=== PATIENT | female | born 2000 | race African-American/Black ===

== ENCOUNTER 2023-07-24 20:28 | Inpatient (IN) ==
--- NOTE | 2023-07-24 20:55 | Emergency Department Note ---
Impression & Plan Suicide attempt by drug ingestion, Overdose on Tylenol, Acute hypokalemia ED Provider Note HISTORY OF PRESENT ILLNESS: Patient is a 23-year-old female presenting after a suicide attempt via overdosing on Tylenol and caffeine. Patient reports that at 1700 today she took 8-12 extra strength Tylenol and drank 5 Celsius energy drinks. Reports she was trying to kill her self secondary to social stressors and stressors with class at the [employer]. She denies any homicidal ideation. Reports she is attempted suicide before in the past via an overdose. Denies any previous inpatient psychiatric admissions. Does not take any medications daily. Patient denies any nausea or vomiting at this time. Other than taking the caffeine, patient denies any other coingestions. ROS: as above PHYSICAL EXAM: Constitutional: Patient appears in no acute distress. HENT: Head: Normocephalic and atraumatic. Eyes: EOMI, PERRL Mouth/Throat: Mucous membranes moist. Neck: Trachea midline. Neck supple. Cardiovascular: Tachycardic with regular rhythm. No murmurs, rubs or gallops. Intact distal pulses. Pulmonary/Chest: No respiratory distress. Breath sounds clear and equal bilaterally. No wheezes or rales. Abdominal: Abdomen soft, no tenderness, rebound or guarding. Musculoskeletal: No edema, tenderness or deformity noted. Skin: Warm and dry. No rash, erythema, pallor or cyanosis Psychiatric: Appropriate mood and affect for situation. Neurological: Alert and keenly responsive. CN II-XII grossly intact, moving all extremities equally and fully. MDM: - Vitals signs showed hypertension and tachycardia. - History obtained via patient. Patient presents with suicide attempt via overdose. Patient reports she took 12 extra strength Tylenol at 1700 today and drank 5 Celsius energy drinks. Reports she was trying to kill her self secondary to social stressors. Denies any homicidal ideation. Reports previous suicide attempts via overdose in the past. She is not currently on any medications. Denies any nausea or vomiting at this time. - Chronic conditions affecting care: None - Differential diagnoses include, but are not limited to: Acetaminophen overdose; coingestion overdose; alcohol overdose; dysrhythmia; electrolyte abnormality - Order placed for continuous cardiac monitoring. At this time, monitor showed rate of 91 bpm with normal sinus rhythm, per my interpretation. - External medical records reviewed. In the past. - I called and spoke with [facility] at 20:56. They recommended drawing a Tylenol level at this time, as patient is about 4 hours postingestion. Recommended that if patient's acetaminophen level is less than 150 and her LFTs are normal, she does not need NAC. If patient did ingest 12 tabs, it was a total of 6 g of Tylenol which would not be a toxic dose. - EKG reviewed by myself showed normal sinus rhythm. Rate 92 bpm. QTc 440. No acute ischemic changes. Very poor baseline secondary to artifact. - Laboratory workup interpreted by myself showed normal WBC; hypokalemia (K 3.3); normal hepatic function; negative ethanol/salicylate levels; elevated acetaminophen (39) - COVID negative - Based on poison control recommendations, patient does not require NAC. - UA negative for infection - UDS negative - Patient given 2L NS in ER for hydration. Given 20 mEq PO potassium for electrolyte replacement. - Patient medically cleared. - Patient signed a 201 for voluntary admission for her suicide attempt. She was evaluated by a customer relations representative from inpatient psychiatric unit on 3 S. She was accepted for admission. ASSESSMENT AND PLAN: Diagnosis: Suicide attempt via drug ingestion; Tylenol overdose; hypokalemia Plan: Admit Past Med/Surg History Social History Smoking Status: Never smoker Preferred Language: Romanian Feels Safe at Home: Yes Gender Identity: Female Allergies Allergies Allergy/AdvReac Type Severity Reaction Status Date / Time Penicillins Allergy Intermediate Hives Verified 07/24/23 22:08 Home Meds Home Medications Medication Instructions Recorded Confirmed No Known Home Medications 07/24/23 07/24/23 Results & Data (ED) Vital Signs Vital Signs - 24 hr 07/24/23 20:35 07/24/23 21:06 07/24/23 21:06 Temperature 36.6 C Temperature Source Temporal Artery Scan Pulse Rate 113 H Pulse Rate [Apical] 104 H Respiratory Rate 20 20 Respiratory Effort / Characteristics Non-Labored Spontaneous Respiratory Depth Normal Blood Pressure 164/88 H Blood Pressure [Left Arm] Blood Pressure Mean 113 Blood Pressure Mean [Left Arm] Pulse Oximetry 97 100 Oxygen Delivery Method Room Air Room Air Room Air Sepsis New/Unexplained Change in Mental Status N/A Sepsis Action Taken by Nursing No Action Required 07/24/23 21:06 07/24/23 21:14 07/24/23 22:10 Temperature Temperature Source Pulse Rate 107 H Pulse Rate [Apical] 93 H Respiratory Rate 16 Respiratory Effort / Characteristics Respiratory Depth Blood Pressure Blood Pressure [Left Arm] 107/68 Blood Pressure Mean Blood Pressure Mean [Left Arm] 81 Pulse Oximetry 98 Oxygen Delivery Method Room Air Sepsis New/Unexplained Change in Mental Status Sepsis Action Taken by Nursing Laboratory Data 07/24/23 20:53 07/24/23 20:53 Lab Results 07/24/23 07/24/23 07/24/23 Range/Units 20:53 21:19 23:03 WBC 6.55 (4.8-10.8) K/ul RBC 4.72 (4.20-5.40) M/uL Hgb 14.7 (12.0-16.0) g/dl Hct 41.8 (37.0-47.0) % MCV 88.6 (80.0-100.0) fL MCH 31.1 (25.0-34.0) pg MCHC 35.2 (32.0-36.0) g/dL RDW Std Deviation 37.1 (36.4-46.3) fL RDW Coeff of Curt 11.5 (11.5-14.5) % Plt Count 245 (130-400) K/uL MPV 10.6 (9.4-12.4) fL Immature Gran % (Auto) 0.3 % Neut % (Auto) 63.6 % Lymph % (Auto) 27.8 % [place] % (Auto) 5.3 % Eos % (Auto) 2.7 % Baso % (Auto) 0.3 % Neut # (Auto) 4.16 (1.40-6.50) K/uL Lymph # (Auto) 1.82 (1.20-3.40) K/uL [place] # (Auto) 0.35 (0.11-0.59) K/uL Eos # (Auto) 0.18 (0.00-0.50) K/uL Baso # (Auto) 0.02 (0.00-0.20) K/uL Immature Gran # (Auto) 0.02 (0.01-0.20) K/uL PT 11.2 (9.0-12.0) Seconds INR 1.0 (0.9-1.1) VBG pH 7.41 (7.36-7.41) VBG pCO2 32 L (38-50) mmHg VBG pO2 31 mmHg VBG HCO3 20 mmol/L VBG O2 Saturation < 60.0 % VBG Base Excess -3.4 mEq/L Sodium 136 (136-145) mmol/L Potassium 3.3 L (3.5-5.1) mmol/L Chloride 103 (98-107) mmol/L Carbon Dioxide 20 L (21-32) mmol/L Anion Gap 13 H (3-11) BUN 10 (6-23) mg/dl Creatinine 0.86 (0.6-1.2) mg/dl Est Cr Clr Drug Dosing 87.9 ml/min Est GFR ( Amer) 110.4 ml/min Est GFR (Non-Af Amer) 95.2 ml/min BUN/Creatinine Ratio 11.6 (10-20) Glucose 107 H (70-99(Fasting)) mg/dl Calcium 10.4 H (8.6-10.3) mg/dl Magnesium 1.7 (1.7-2.4) mg/dl Total Bilirubin 1.3 H (0.2-1.0) mg/dl AST 17 (13-39) U/L ALT 10 (7-52) U/L Alkaline Phosphatase 57 (34-104) U/L Total Protein 8.3 (6.0-8.3) gm/dl Albumin 4.6 (3.4-5.0) gm/dl Globulin 3.7 (2.5-4.0) gm/dl Albumin/Globulin Ratio 1.2 (0.9-2) HCG, Qual Negative (Negative) Urine Color Yellow Urine Appearance Clear (Clear) Urine pH 7.0 (4.5-7.5) Ur Specific [place] 1.011 (1.000-1.030) Urine Protein Negative (Negative) Urine Glucose (UA) Trace H (Negative) Urine Ketones Trace H (Negative) Urine Blood Negative (Negative) Urine Nitrite Negative (Negative) Urine Bilirubin Negative (Negative) Urine Urobilinogen Negative (Negative) Ur Leukocyte Esterase Negative (Negative) Urine Test Negative (Negative) Salicylates < 3.0 L (3.0-30) mg/dl Urine Opiates Screen Neg (Neg) Ur Methadone, Qual Neg (Neg) Acetaminophen 39 H (10-30) ug/ml Urine Barbiturates Neg (Neg) Ur Phencyclidine (PCP) Neg (Neg) U Amphetamin/Meth Scrn Neg (Neg) MDMA (Ecstasy) Screen Neg (Neg) U Benzodiazepines Scrn Neg (Neg) Ur Cocaine Metabolite Neg (Neg) U Marijuana (THC) Screen Neg (Neg) Ethyl Alcohol mg/dL < 10.0 (<10.0) mg/dl SARS-CoV-2, RNA, NAAT (NEGATIVE) 07/24/23 Range/Units Unknown WBC (4.8-10.8) K/ul RBC (4.20-5.40) M/uL Hgb (12.0-16.0) g/dl Hct (37.0-47.0) % MCV (80.0-100.0) fL MCH (25.0-34.0) pg MCHC (32.0-36.0) g/dL RDW Std Deviation (36.4-46.3) fL RDW Coeff of Curt (11.5-14.5) % Plt Count (130-400) K/uL MPV (9.4-12.4) fL Immature Gran % (Auto) % Neut % (Auto) % Lymph % (Auto) % [place] % (Auto) % Eos % (Auto) % Baso % (Auto) % Neut # (Auto) (1.40-6.50) K/uL Lymph # (Auto) (1.20-3.40) K/uL [place] # (Auto) (0.11-0.59) K/uL Eos # (Auto) (0.00-0.50) K/uL Baso # (Auto) (0.00-0.20) K/uL Immature Gran # (Auto) (0.01-0.20) K/uL PT (9.0-12.0) Seconds INR (0.9-1.1) VBG pH (7.36-7.41) VBG pCO2 (38-50) mmHg VBG pO2 mmHg VBG HCO3 mmol/L VBG O2 Saturation % VBG Base Excess mEq/L Sodium (136-145) mmol/L Potassium (3.5-5.1) mmol/L Chloride (98-107) mmol/L Carbon Dioxide (21-32) mmol/L Anion Gap (3-11) BUN (6-23) mg/dl Creatinine (0.6-1.2) mg/dl Est Cr Clr Drug Dosing ml/min Est GFR ( Amer) ml/min Est GFR (Non-Af Amer) ml/min BUN/Creatinine Ratio (10-20) Glucose (70-99(Fasting)) mg/dl Calcium (8.6-10.3) mg/dl Magnesium (1.7-2.4) mg/dl Total Bilirubin (0.2-1.0) mg/dl AST (13-39) U/L ALT (7-52) U/L Alkaline Phosphatase (34-104) U/L Total Protein (6.0-8.3) gm/dl Albumin (3.4-5.0) gm/dl Globulin (2.5-4.0) gm/dl Albumin/Globulin Ratio (0.9-2) HCG, Qual (Negative) Urine Color Urine Appearance (Clear) Urine pH (4.5-7.5) Ur Specific [place] (1.000-1.030) Urine Protein (Negative) Urine Glucose (UA) (Negative) Urine Ketones (Negative) Urine Blood (Negative) Urine Nitrite (Negative) Urine Bilirubin (Negative) Urine Urobilinogen (Negative) Ur Leukocyte Esterase (Negative) Urine Test (Negative) Salicylates (3.0-30) mg/dl Urine Opiates Screen (Neg) Ur Methadone, Qual (Neg) Acetaminophen (10-30) ug/ml Urine Barbiturates (Neg) Ur Phencyclidine (PCP) (Neg) U Amphetamin/Meth Scrn (Neg) MDMA (Ecstasy) Screen (Neg) U Benzodiazepines Scrn (Neg) Ur Cocaine Metabolite (Neg) U Marijuana (THC) Screen (Neg) Ethyl Alcohol mg/dL (<10.0) mg/dl SARS-CoV-2, RNA, NAAT NEGATIVE (NEGATIVE) Administered Medications Discontinued Medications Sodium Chloride (Nss) 1,000 mls @ 999 mls/hr IV .Q1H1M JOSE Stop: 07/24/23 22:00 Last Infusion: 07/24/23 22:24 Dose: Infused Documented By: Admin: 07/24/23 21:26 Dose: 999 mls/hr Documented By: PAVEL Sodium Chloride (Nss) 1,000 mls @ 999 mls/hr IV .Q1H1M ONE Stop: 07/25/23 00:31 Last Admin: 07/25/23 00:14 Dose: 999 mls/hr Documented By: PAVEL Potassium Chloride (Potassium Chloride Crtab 20 Meq Tabcr) 20 meq PO NOW STA Stop: 07/24/23 23:38 Last Admin: 07/25/23 00:15 Dose: Not Given Documented By: PAVEL Potassium Chloride (Potassium Chloride 10 Meq Tabcr) Confirm Administered Dose 20 meq PO .STK-MED ONE Stop: 07/25/23 00:02 Last Admin: 07/25/23 00:14 Dose: 20 meq Documented By: PAVEL Discharge Plan Visit Data Chief Complaint: Overdose (Intentional) Stated Complaint: DRANK A LOT OF CAFFINE AND TOOK A LOT OF TYLENOL ED Provider: Lilliana Young Discharge Problem: Suicide attempt by drug ingestion, Overdose on Tylenol, Acute hypokalemia Forms Stand Alone Forms: [facility], Suicide Prevention Resources Prescriptions Prescriptions: No Action No Known Home Medications Referrals Referrals: PCP,NO [Physician] -
[2023-07-24] MEDS ORDERED: SODIUM CHLORIDE 0.9% 1,000 ML IV SCH (21:00)
[2023-07-24 21:26] LABS: Base Excess VBG -3.4 mEq/L; HCO3 VBG 20 mmol/L; Oxygen Saturation VBG < 60.0 %; PCO2 VBG 32 mmHg (38-50); PO2 VBG 31 mmHg; pH VBG 7.41 (7.36-7.41)
[2023-07-24 21:28] LABS: Pregnancy Test, Serum Negative (Negative)
[2023-07-24 21:34] LABS: Albumin Globulin Ratio 1.2 (0.9-2); Albumin Level 4.6 gm/dl (3.4-5.0); BUN Creatinine Ratio 11.6 (10-20); Bilirubin,Total 1.3 mg/dl (0.2-1.0); Calcium 10.4 mg/dl (8.6-10.3); Creatinine Clr Calc Pharmacy 87.9 ml/min; Est GFR (African American) 110.4 ml/min; Est GFR (Non-African American) 95.2 ml/min; Globulin 3.7 gm/dl (2.5-4.0); Magnesium 1.7 mg/dl (1.7-2.4); Potassium 3.3 mmol/L (3.5-5.1); Total Protein 8.3 gm/dl (6.0-8.3)
[2023-07-24 21:35] LABS: Basophils # (auto) 0.02 K/uL (0.00-0.20); Basophils % (auto) 0.3 %; Eosinophils # (auto) 0.18 K/uL (0.00-0.50); Eosinophils % (auto) 2.7 %; Hematocrit (blood only) 41.8 % (37.0-47.0); Hemoglobin 14.7 g/dl (12.0-16.0); Immature Granulocytes # (auto) 0.02 K/uL (0.01-0.20); Immature Granulocytes % (auto) 0.3 %; Lymphocytes # (auto) 1.82 K/uL (1.20-3.40); Lymphocytes % (auto) 27.8 %; Mean Corpuscular Hemoglobin 31.1 pg (25.0-34.0); Mean Corpuscular Hgb Conc 35.2 g/dL (32.0-36.0); Mean Corpuscular Volume 88.6 fL (80.0-100.0); Mean Platelet Volume 10.6 fL (9.4-12.4); Monocytes # (auto) 0.35 K/uL (0.11-0.59); Monocytes % (auto) 5.3 %; Neutrophils # (auto) 4.16 K/uL (1.40-6.50); Neutrophils % (auto) 63.6 %; Platelet Count 245 K/uL (130-400); RDW Coefficient of Variation 11.5 % (11.5-14.5); RDW Standard Deviation 37.1 fL (36.4-46.3); Red Blood Count 4.72 M/uL (4.20-5.40); White Blood Count 6.55 K/ul (4.8-10.8)
[2023-07-24 21:48] LABS: Prothrombin Time 11.2 Seconds (9.0-12.0)
[2023-07-24 21:49] LABS: Acetaminophen 39 ug/ml (10-30); Salicylate < 3.0 mg/dl (3.0-30)
[2023-07-24 23:24] LABS: Appearance Urine Clear (Clear); Bilirubin Urine Negative (Negative); Blood Urine Negative (Negative); Color Urine Yellow; Glucose Urine UA Trace (Negative); Ketones Urine Trace (Negative); Leukocyte Esterase Urine Negative (Negative); Nitrite Urine Negative (Negative); Protein Urine Negative (Negative); Specific Gravity Urine 1.011 (1.000-1.030); Urobilinogen Urine Negative (Negative)
[2023-07-24 23:29] LABS: Pregnancy Test, Urine Negative (Negative)
[2023-07-24] MEDS ORDERED: SODIUM CHLORIDE 0.9% 1,000 ML IV ONE (23:31)
[2023-07-24] MEDS ORDERED: POTASSIUM CHLORIDE CRTAB 20 MEQ TABCR PO STA (23:37)
[2023-07-25] MEDS ORDERED: POTASSIUM CHLORIDE 10 MEQ TABCR PO ONE (00:01)
[2023-07-25 00:07] LABS: Amphetamines+Metham, Urine Neg (Neg); Barbiturates, Urine Neg (Neg); Benzodiazepine, Urine Neg (Neg); Cocaine, Urine Neg (Neg); MDMA (Ecstacy), Urine Neg (Neg); Methadone, Urine Neg (Neg); Opiate, Urine Neg (Neg); Phencyclidine, Urine Neg (Neg)
[2023-07-25] MEDS ORDERED: SODIUM CHLORIDE 0.65% NA SOLN 45 ML (OCEAN) PRN (02:30)
[2023-07-25] MEDS ORDERED: BISMUTH SUBSALICYLATE LIQD 236 ML PO PRN (02:30)
[2023-07-25] MEDS ORDERED: MAGNESIUM HYDROXIDE SUSP 30 ML UDC PO PRN (02:30)
[2023-07-25] MEDS ORDERED: ALUMINUM/MAGNESIUM SUSP 30 ML UDC PO PRN (02:30)
[2023-07-25] MEDS ORDERED: hydrOXYzine HCl 25 MG TAB PO PRN ×2 (02:30)
--- NOTE | 2023-07-25 08:31 | History & Physical ---
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 Diagnostically consistent with unspecified depressive disorder with differential including MDD vs reactive depression/ adjustment disorder with depressed mood. Discussed medication treatment options in detail including SSRI and Wellbutrin vs no medication and working on therapy. Discussed risks, benefits and alternatives. Patient would like to start and consented to Wellbutrin for depression. Reviewed side effects including but not limited to: increased BP, increased HR, insomnia, decreased appetite, lowered seizure threshold, and counseled on black box warning of potential for emergence of or increased SI and need to let staff know should this occur or should they feel unsafe. Also discussed importance of seeking emergency care following discharge if this side effect occurs in the future. Overall I spent a total of 80 minutes for this admission including review of chart records, review of labwork, direct evaluation of the patient, counseling the patient, ordering medication, risk assessment, discussion with the psychiat maurisio liason RN and treatment team, documentation in the electronic health record. (1) Suicide attempt by drug ingestion: (2) Overdose on Tylenol: Injury intent: intentional self-harm (3) Depression, unspecified: Depression Type: unspecified Qualified Code(s): F32.A - Depression, unspecified Plan 07/25/2023: The patient was admitted to the [facility] ([facility] mental health unit) on q15 min checks (behavioral with suicide precautions) for safety. The patient will participate in group, recreational, and milieu therapies and will be offered additional individual and family sessions as clinically appropriate. -Wellbutrin XL 150mg qAM tomorrow Inventory Assets Strengths: supportive relationships, willing to get treatment Needs: safety and stabilization, medication adjustment, additional coping skills, increased outpatient services Suicide Risk Level Suicide Risk Level: High-Moderate (q15 min suicide checks) (suicide attempt prior to admission but feels safe in the hospital, and feels able and comfortable letting nursing/staff know should they develop plan, intent or feel unable to remain safe. 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 Chief Complaint "Things came on suddenly". History of Present Illness She presents for psychiatric admission for worsening depression and suicide attempt via overdose of acetaminophen and energy drinks in the context of failing her nursing clinical which means she cannot graduate as planned and unhappiness overall in her major and as student at [employer]. She talked to her mom yesterday to tell her that she failed the clinical and "that I'm going to need to decide what I'm going to do that's not nursing". Her parents don't currently know she is the hospital but she plans to tell her mom today. She notes that yesterday she first tried putting a plastic bag over her head and when then that didn't work she researched and found "caffeine at a certain amount could cause seizures and that Tylenol can be really bad for your liver and didn't know what other drugs were available". 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 She notes feeling good about being alive and is "nervous about what I'm going to study but also it will be nice to pick what I study" but also "not sure what this means for graduation". She describes feeling depressed in the last 4-5 weeks before failing her clinical exam including crying alot, some hopelessness and helplessness, low motivation, difficulty getting out of bed and sleep has been stable. Additional collateral per psych liason note from 07/25/2023: "23y F, 201, no hx inpt tx, 1 previous suicide attempt in 2020 by cutting, reports being depressed since coming to [employer]. 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 Received failing grades yesterday, impulsively went to the store, bought Tylenol and energy drinks to consume with the intent of suicide. Spoke with her mom on the phone, didn't disclose taking the OD, but felt better after talking with mom, so she drove herself to the ER. Willing to sign in voluntarily for tx, not on any medications, had a therapist in [place] but no longer sees her. Pt seemed guarded in her answers, and was not willing to sign BLADIMIR for parents. Denies anxiety, denies thoughts of SI until yesterday." Further collateral per ED CM note from 07/24/2023: "Pt presents after taking 8- 12 Tylenol and 5 Celsius energy drinks in an attempt to end her life. She denies HI/AH/VH/Paranoia. Denies current self-injury. Pt prefers she/her pronouns. Denies problems with anxiety. Pt does have a therapist but does not recall her name at this time. 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 Carlos reports getting approximately 6 hours of sleep nightly and has had a reduced appetite without any noticeable weight loss. Pt denies disordered eating. She does report a previous suicide attempt in 2020 when she tried to cut herself but did not seek medical or inpatient mental health treatment. Pt is tearful but pleasant and cooperative. She is willing to sign herself in at this time." She is not currently prescribed any psychiatric medications. Psychiatric ROS notable for no current nor history of symptoms of magali, psyc hosis, PTSD, OCD, self-harm nor eating disorder. Past Psychiatric History Current Psychiatric Diagnosis: unspecified depressive disorder Outpatient Services: none currently, hx therapy in [place] with Leticia Elizondo-has set up appointment with this provider for next Friday Previous Psych Admissions: none Do You Have Access To A Gun?: No History of Previous Suicide Attempt: Yes (2020) Describe Attempts in the Past: via cutting, never sought treatment Past Medication Trials: none Past Head Trauma/Neuro History History of Concussion/Seizure: No Allergies Allergy/AdvReac Type Severity Reaction Status Date / Time amoxicillin Allergy Intermediate Hives Verified 07/25/23 11:33 Penicillins Allergy Intermediate Hives Verified 07/25/23 11:33 Home Medications Medication Instructions Recorded Confirmed Type No Known Home Medications 07/24/23 07/24/23 History Family History Family History of: Alcoholism/Drug Abuse (paternal side), Other-List under Comment (paternal cousin ADHD) and Doesn't Know Alcohol History Hx of Alcohol Use Over the Past 12 Months: No AUDIT Total Score: 0 Smoking Use Have You Smoked or Used Tobacco Products in the Last 30 Days: No Smoking Status: Never smoker Substance History Hx of Prescription Med Misuse Over the Past 12 Months: No Hx of Over the Counter Med Misuse Over the Past 12 Months: No Hx of Inhalent Misuse Over the Past 12 Months: No Hx of Organic Substance Use Over the Past 12 Months: No Hx of Illegal Substances/Street Drug Use Over Past 12 Months: No Problems as a Result of Past Substance Use: None Identified Personal History Living Arrangements: Apartment Childhood: Raised in [place], family lives there. Parents are . Has a younger brother. 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 [employer] Film Required: No Beliefs That Will Affect Care: None Feels Safe at Home: Yes Gender Identity: Female Assistive Devices: None Review of Systems Review of Systems: All systems reviewed & are unremarkable except as noted in HPI & below Physical Exam Psychiatric: Orientation: alert and oriented x 3 Apperance: appropriately dressed and appropriately groomed Eye Contact: good eye contact Motor Behavior: no abnormal motor movements Speech: normal rate/rhythm/volume of speech Affect: + depressed affect Mood: + depressed mood Thought Process: goal directed thought process Thought Content: reality based without delusions Suicidal Thoughts: denies suicidal thoughts (but s/p attempt), denies suicidal plan and denies suicidal intent Homicidal Thoughts: denies homicidal thoughts Hallucinations: no auditory hallucinations and no visual hallucinations Cognition: recent memory grossly intact, remote memory grossly intact, attention grossly intact and language grossly intact Estimated Intelligence: consistent with education level Insight: + limited insight Judgment: + limited judgement Vital Signs (Past 24 Hours): Last Vital Signs Temp 36.8 C 11/17/23 06:00 Pulse 96 H 07/25/23 06:00 Resp 16 07/25/23 06:00 BP 121/77 07/25/23 06:00 Pulse Ox 99 07/25/23 06:00 O2 Del Method Room Air 07/25/23 06:00 Exam Statement: A physical exam was performed in the ED by Dr. Young for the purposes of medical clearance. I accept that physical as correct and adequate for the purposes of the inpatient physical exam. Results & Data ([facility]) Laboratory Results Laboratory Results - last 24 hr 07/24/23 07/24/23 07/24/23 20:53 21:19 23:03 WBC 6.55 RBC 4.72 Hgb 14.7 Hct 41.8 MCV 88.6 MCH 31.1 MCHC 35.2 RDW Std Deviation 37.1 RDW Coeff of Curt 11.5 Plt Count 245 MPV 10.6 Immature Gran % (Auto) 0.3 Neut % (Auto) 63.6 Lymph % (Auto) 27.8 [place] % (Auto) 5.3 Eos % (Auto) 2.7 Baso % (Auto) 0.3 Neut # (Auto) 4.16 Lymph # (Auto) 1.82 [place] # (Auto) 0.35 Eos # (Auto) 0.18 Baso # (Auto) 0.02 Immature Gran # (Auto) 0.02 PT 11.2 INR 1.0 VBG pH 7.41 VBG pCO2 32 L VBG pO2 31 VBG HCO3 20 VBG O2 Saturation < 60.0 VBG Base Excess -3.4 Sodium 136 Potassium 3.3 L Chloride 103 Carbon Dioxide 20 L Anion Gap 13 H BUN 10 Creatinine 0.86 Est Cr Clr Drug Dosing 87.9 Est GFR ( Amer) 110.4 Est GFR (Non-Af Amer) 95.2 BUN/Creatinine Ratio 11.6 Glucose 107 H Calcium 10.4 H Magnesium 1.7 Total Bilirubin 1.3 H AST 17 ALT 10 Alkaline Phosphatase 57 Total Protein 8.3 Albumin 4.6 Globulin 3.7 Albumin/Globulin Ratio 1.2 HCG, Qual Negative Urine Color Yellow Urine Appearance Clear Urine pH 7.0 Ur Specific [place] 1.011 Urine Protein Negative Urine Glucose (UA) Trace H Urine Ketones Trace H Urine Blood Negative Urine Nitrite Negative Urine Bilirubin Negative Urine Urobilinogen Negative Ur Leukocyte Esterase Negative Urine Test Negative Salicylates < 3.0 L Urine Opiates Screen Neg Ur Methadone, Qual Neg Acetaminophen 39 H Urine Barbiturates Neg Ur Phencyclidine (PCP) Neg U Amphetamin/Meth Scrn Neg MDMA (Ecstasy) Screen Neg U Benzodiazepines Scrn Neg Ur Cocaine Metabolite Neg U Marijuana (THC) Screen Neg Ethyl Alcohol mg/dL < 10.0 SARS-CoV-2, RNA, NAAT 07/24/23 Unknown WBC RBC Hgb Hct MCV MCH MCHC RDW Std Deviation RDW Coeff of Curt Plt Count MPV Immature Gran % (Auto) Neut % (Auto) Lymph % (Auto) [place] % (Auto) Eos % (Auto) Baso % (Auto) Neut # (Auto) Lymph # (Auto) [place] # (Auto) Eos # (Auto) Baso # (Auto) Immature Gran # (Auto) PT INR VBG pH VBG pCO2 VBG pO2 VBG HCO3 VBG O2 Saturation VBG Base Excess Sodium Potassium Chloride Carbon Dioxide Anion Gap BUN Creatinine Est Cr Clr Drug Dosing Est GFR ( Amer) Est GFR (Non-Af Amer) BUN/Creatinine Ratio Glucose Calcium Magnesium Total Bilirubin AST ALT Alkaline Phosphatase Total Protein Albumin Globulin Albumin/Globulin Ratio HCG, Qual Urine Color Urine Appearance Urine pH Ur Specific [place] Urine Protein Urine Glucose (UA) Urine Ketones Urine Blood Urine Nitrite Urine Bilirubin Urine Urobilinogen Ur Leukocyte Esterase Urine Test Salicylates Urine Opiates Screen Ur Methadone, Qual Acetaminophen Urine Barbiturates Ur Phencyclidine (PCP) U Amphetamin/Meth Scrn MDMA (Ecstasy) Screen U Benzodiazepines Scrn Ur Cocaine Metabolite U Marijuana (THC) Screen Ethyl Alcohol mg/dL SARS-CoV-2, RNA, NAAT NEGATIVE Current Inpatient Medications Current Inpatient Medications: Current Inpatient Medications Al Hydrox/Mg Hydrox/Simethicone (Aluminum/Magnesium Susp 30 Ml Udc) 30 ml PO Q4H PRN PRN Reason: GI Upset Stop: 08/24/23 02:29 Bismuth Subsalicylate (Bismuth Subsalicylate Liqd 236 Ml) 15 ml PO PRN PRN PRN Reason: Loose Stool Stop: 08/24/23 02:29 Hydroxyzine HCl (Hydroxyzine Hcl 25 Mg Tab) 50 mg PO HSZ PRN PRN Reason: Insomnia Stop: 08/24/23 02:29 Hydroxyzine HCl (Hydroxyzine Hcl 25 Mg Tab) 25 mg PO Q4H PRN PRN Reason: Anxiety Stop: 08/24/23 02:29 Magnesium Hydroxide (Magnesium Hydroxide Susp 30 Ml Udc) 30 ml PO DAILY PRN PRN Reason: Constipation Stop: 08/24/23 02:29 Sodium Chloride (Sodium Chloride 0.65% Na Soln 45 Ml ([place])) 1 - 2 sprays NA PRN PRN PRN Reason: Nasal Dryness/Congestion Stop: 08/24/23 02:29
--- NOTE | 2023-07-25 08:48 | Electrocardiogram Report ---
Test Reason : Blood Pressure : / mmHG Vent. Rate : 092 BPM Atrial Rate : 092 BPM P-R Int : 166 ms QRS Dur : 088 ms QT Int : 356 ms P-R-T Axes : 077 086 059 degrees QTc Int : 440 ms Normal sinus rhythm with sinus arrhythmia Normal ECG No previous ECGs available Confirmed by Juma Khan ([id number]) on 07/25/2023 8:48:22 AM Referred By: REFERRED SELF Confirmed By:Juma Khan
[2023-07-26] MEDS: buPROPion XL 150 MG TABCR PO SCH (08:45)
--- NOTE | 2023-07-26 11:00 | Psychiatric Progress Note ---
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 Diagnostically consistent with unspecified depressive disorder with differential including MDD vs reactive depression/ adjustment disorder with depressed mood. 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 She feels out of place in [place] in contrast to [facility] where she grew up. Has few friends, none local. Feels uninteresting, unattractive, doesn't feel as if she deserves to ask to be included socially by others, but longs for social contact. Has never dated but thinks she'd like to ("eventually"). Denies current suicidal thoughts. Has decided to include mother in a support meeting. Discussed medication plan - pt seems unaware that she was to have started bupropion this morning. 07/25/2023: Discussed medication treatment options in detail including SSRI and Wellbutrin vs no medication and working on therapy. Discussed risks, benefits and alternatives. Patient would like to start and consented to Wellbutrin for depression. Reviewed side effects including but not limited to: increased BP, increased HR, insomnia, decreased appetite, lowered seizure threshold, and counseled on black box warning of potential for emergence of or increased SI and need to let staff know should this occur or should they feel unsafe. Also discussed importance of seeking emergency care following discharge if this side effect occurs in the future. (1) Suicide attempt by drug ingestion: (2) Overdose on Tylenol: (3) Depression, unspecified: Plan 07/26/2023: * continue bupropion XL 150 mg QAM - started 07/25/2023 * additional lab: b12, folic acid, vitamin D levels, ESR 07/25/2023: The patient was admitted to the [facility] ([facility] inpatient mental health unit) on q15 min checks (behavioral with suicide precautions) for safety. The patient will participate in group, recreational, and milieu therapies and will be offered additional individual and family sessions as clinically appropriate. -Wellbutrin XL 150mg qAM tomorrow Inventory Assets Strengths: supportive relationships, willing to get treatment Needs: safety and stabilization, medication adjustment, additional coping skills, increased outpatient services Suicide Risk Level Suicide Risk Level: High-Moderate (q15 min suicide checks) (suicide attempt prior to admission but feels safe in the hospital, and feels able and comfortable letting nursing/staff know should they develop plan, intent or feel unable to remain safe. ) Suicide Risk Level Comments: High-Moderate due to severe depression with SI with plan prior to admission but feels safe in the hospital, able to safety contract and agrees to let nursing/staff know should they develop plan, intent or feel unable to remain safe. 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 Chief Complaint "I feel so trapped". Review of Systems Sleep Information Total Hours of Sleep: 6.25 Sleep Comments: New admission Meal Information Percent Meal Consumed - Breakfast: 100 Percent Meal Consumed - Lunch: 100 Percent Meal Consumed - Dinner: 100 Subjective Subjective The patient was seen and assessed and interval progress reviewed in a multidisciplinary team meeting with the treatment team. For details, see the "Impression" section. Overall I spent a total of 42 minutes for this inpatient follow-up including review of chart records, review of test results, direct evaluation of the patient [id number], counseling the patient, medication education with the patient, risk assessment, discussion during interdisciplinary treatment rounds, and documentation in the electronic health record. Physical Exam Psychiatric Orientation: alert and oriented x 3 Apperance: appropriately dressed and appropriately groomed Eye Contact: good eye contact Motor Behavior: no abnormal motor movements Speech: normal rate/rhythm/volume of speech Affect: + depressed affect and + anxious affect Mood: + depressed mood and + anxious mood Thought Process: goal directed thought process Thought Content: reality based without delusions Suicidal Thoughts: denies suicidal thoughts (but s/p attempt), denies suicidal plan and denies suicidal intent Homicidal Thoughts: denies homicidal thoughts Hallucinations: no auditory hallucinations and no visual hallucinations Cognition: recent memory grossly intact, remote memory grossly intact, attention grossly intact and language grossly intact Estimated Intelligence: consistent with education level Insight: + limited insight and + fair insight Judgment: + limited judgement and + fair judgement Vital Signs (Past 24 Hours) Last Vital Signs Temp 37 C 07/26/23 06:44 Pulse 77 07/26/23 06:45 Resp 16 07/26/23 06:44 BP 117/85 07/26/23 06:45 Pulse Ox 99 07/25/23 06:00 O2 Del Method Room Air 07/25/23 06:00 Results & Data ([facility]) Current Inpatient Medications Current Inpatient Medications: Current Inpatient Medications Al Hydrox/Mg Hydrox/Simethicone (Aluminum/Magnesium Susp 30 Ml Udc) 30 ml PO Q4H PRN PRN Reason: GI Upset Stop: 08/24/23 02:29 Bismuth Subsalicylate (Bismuth Subsalicylate Liqd 236 Ml) 15 ml PO PRN PRN PRN Reason: Loose Stool Stop: 08/24/23 02:29 Bupropion HCl (Bupropion Xl 150 Mg Tabcr) 150 mg PO QAM JOSE Stop: 08/25/23 08:59 Last Admin: 07/26/23 08:45 Dose: 150 mg Hydroxyzine HCl (Hydroxyzine Hcl 25 Mg Tab) 50 mg PO HSZ PRN PRN Reason: Insomnia Stop: 08/24/23 02:29 Hydroxyzine HCl (Hydroxyzine Hcl 25 Mg Tab) 25 mg PO Q4H PRN PRN Reason: Anxiety Stop: 08/24/23 02:29 Magnesium Hydroxide (Magnesium Hydroxide Susp 30 Ml Udc) 30 ml PO DAILY PRN PRN Reason: Constipation Stop: 08/24/23 02:29 Sodium Chloride (Sodium Chloride 0.65% Na Soln 45 Ml ([place])) 1 - 2 sprays NA PRN PRN PRN Reason: Nasal Dryness/Congestion Stop: 08/24/23 02:29 Mental Health & Subst Abuse Tx Psychiatrist Name of Psychiatrist: N/A Date Of Appointment With Psychiatric Provider: NA Therapist Name of Therapist: Dr. Leticia Moses Therapist's Date of Therapist Appointment: 07/30/2023 Time of Therapist Appointment: 7pm Therapy Appointment Comment: telehealth Global Climate Change Researcher Name of Global Climate Change Researcher: [employer] Phone Number for Global Climate Change Researcher: [phone] Case Management Appointment Comment: Zoom link will be sent to [employer] email Post Discharge Appointments Primary Care Physician [facility]: [facility] Appointment Comment: [address] [place] [address] (2) Overdose on Tylenol Injury intent: intentional self-harm (3) Depression, unspecified Depression Type: unspecified Qualified Code(s): F32.A - Depression, unspecified
[2023-07-26 19:39] LABS: Folate (Folic Acid),Ser orPlas 18.59 ng/ml (>5.38)
[2023-07-27] MEDS: buPROPion XL 150 MG TABCR PO SCH (09:28)
[2023-07-27] MEDS ORDERED: IBUPROFEN 600 MG TAB PO PRN (13:25)
[2023-07-27] MEDS ORDERED: IBUPROFEN 600 MG TAB PO ONE (13:28)
[2023-07-27] MEDS ORDERED: IBUPROFEN 600 MG TAB PO SCH (13:30)
--- NOTE | 2023-07-27 13:52 | Psychiatric Progress Note ---
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 Diagnostically consistent with unspecified depressive disorder with differential including MDD vs reactive depression/ adjustment disorder with depressed mood. 07/27/2023: 25-OH vitamin D level was 24.8 ng/mL. Remainder of labs were WNL. Discussed need for replacement. Pt reports she's "supposed to be taking vitamin D" but hasn't since coming to [place]. Had a family meeting with her mother earlier today which "went OK, I guess". Formed a plan of returning home to stay in parents' home, following up with current therapist and PCP. 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 07/26/2023: Discussed at length pt's hating nursing school and having no interest at all in pursuing nursing, but feeling as if her parents gave her no other option. She feels out of place in [place] in contrast to [facility] where she grew up. Has few friends, none local. Feels uninteresting, unattractive, doesn't feel as if she deserves to ask to be included socially by others, but longs for social contact. Has never dated but thinks she'd like to ("eventually"). Denies current suicidal thoughts. Has decided to include mother in a support meeting. Discussed medication plan - pt seems unaware that she was to have started bupropion this morning. 07/25/2023: Discussed medication treatment options in detail including SSRI and Wellbutrin vs no medication and working on therapy. Discussed risks, benefits and alternatives. Patient would like to start and consented to Wellbutrin for depression. Reviewed side effects including but not limited to: increased BP, increased HR, insomnia, decreased appetite, lowered seizure threshold, and counseled on black box warning of potential for emergence of or increased SI and need to let staff know should this occur or should they feel unsafe. Also discussed importance of seeking emergency care following discharge if this side effect occurs in the future. (1) Suicide attempt by drug ingestion: (2) Overdose on Tylenol: (3) Depression, unspecified: (4) Vitamin D deficiency: Plan 07/27/2023: * continue bupropion XL 150 mg QAM - started 07/25/2023 * start ergocalciferol 50,000 IU twice weekly * anticipate discharge tomorrow 07/26/2023: * continue bupropion XL 150 mg QAM - started 07/25/2023 * additional lab: b12, folic acid, vitamin D levels, ESR 07/25/2023: The patient was admitted to the [facility] ([facility]) on q15 min checks (behavioral with suicide precautions) for safety. The patient will participate in group, recreational, and milieu therapies and will be offered additional individual and family sessions as clinically appropriate. -Wellbutrin XL 150mg qAM tomorrow Inventory Assets Strengths: supportive relationships, willing to get treatment Needs: safety and stabilization, medication adjustment, additional coping skills, increased outpatient services Suicide Risk Level Suicide Risk Level: Moderate (q15 min suicide checks) (suicide attempt prior to admission but feels safe in the hospital, and feels able and comfortable letting nursing/staff know should they develop plan, intent or feel unable to remain safe. ) Suicide Risk Level Comments: Moderate due to severe depression with SI with plan prior to admission but feels safe in the hospital, able to safety contract and agrees to let nursing/staff know should they develop plan, intent or feel unable to remain safe. 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 Chief Complaint "OK, mostly". Review of Systems Sleep Information Total Hours of Sleep: 6 Sleep Comments: New admission Meal Information Percent Meal Consumed - Breakfast: 100 Percent Meal Consumed - Lunch: 85 Percent Meal Consumed - Dinner: 100 Subjective Subjective The patient was seen and assessed and interval progress reviewed in a multidisciplinary team meeting with the treatment team. For details, see the "Impression" section. Overall I spent a total of 39 minutes for this inpatient follow-up including review of chart records, review of test results, direct evaluation of the patient [id number], counseling the patient, reconciling and ordering medication, medication education with the patient, risk assessment, discussion during interdisciplinary treatment rounds, and documentation in the electronic health record. Physical Exam Psychiatric Orientation: alert, oriented to person, oriented to place, oriented to time and + guarded Apperance: appropriately dressed and appropriately groomed Eye Contact: good eye contact Motor Behavior: no abnormal motor movements Speech: normal rate/rhythm/volume of speech Affect: + depressed affect and + anxious affect Mood: + depressed mood and + anxious mood Thought Process: goal directed thought process Thought Content: reality based without delusions Suicidal Thoughts: denies suicidal thoughts (but s/p attempt), denies suicidal plan and denies suicidal intent Homicidal Thoughts: denies homicidal thoughts Hallucinations: no auditory hallucinations and no visual hallucinations Cognition: recent memory grossly intact, remote memory grossly intact, attention grossly intact and language grossly intact Estimated Intelligence: consistent with education level Insight: + limited insight Judgment: + fair judgement Vital Signs (Past 24 Hours) Last Vital Signs Temp 36.9 C 07/27/23 06:44 Pulse 74 07/27/23 06:45 Resp 16 07/27/23 06:44 BP 109/76 07/27/23 06:45 Pulse Ox 99 07/25/23 06:00 O2 Del Method Room Air 07/25/23 06:00 Results & Data ([facility]) Laboratory Results Laboratory Results - last 24 hr 07/26/23 18:31 ESR 17 Vitamin B12 478 25-OH Vitamin D Total 24.8 L Folate 18.59 Current Inpatient Medications Current Inpatient Medications: Current Inpatient Medications Al Hydrox/Mg Hydrox/Simethicone (Aluminum/Magnesium Susp 30 Ml Udc) 30 ml PO Q4H PRN PRN Reason: GI Upset Stop: 08/24/23 02:29 Bismuth Subsalicylate (Bismuth Subsalicylate Liqd 236 Ml) 15 ml PO PRN PRN PRN Reason: Loose Stool Stop: 08/24/23 02:29 Bupropion HCl (Bupropion Xl 150 Mg Tabcr) 150 mg PO QAM JOSE Stop: 08/25/23 08:59 Last Admin: 07/27/23 09:28 Dose: 150 mg Hydroxyzine HCl (Hydroxyzine Hcl 25 Mg Tab) 50 mg PO HSZ PRN PRN Reason: Insomnia Stop: 08/24/23 02:29 Hydroxyzine HCl (Hydroxyzine Hcl 25 Mg Tab) 25 mg PO Q4H PRN PRN Reason: Anxiety Stop: 08/24/23 02:29 Ibuprofen (Ibuprofen 600 Mg Tab) 600 mg PO Q6H PRN PRN Reason: Pain Stop: 08/26/23 13:24 Magnesium Hydroxide (Magnesium Hydroxide Susp 30 Ml Udc) 30 ml PO DAILY PRN PRN Reason: Constipation Stop: 08/24/23 02:29 Sodium Chloride (Sodium Chloride 0.65% Na Soln 45 Ml ([place])) 1 - 2 sprays NA PRN PRN PRN Reason: Nasal Dryness/Congestion Stop: 08/24/23 02:29 Mental Health & Subst Abuse Tx Psychiatrist Name of Psychiatrist: N/A Date Of Appointment With Psychiatric Provider: [place]BERT Therapist Name of Therapist: Dr. Leticia Moses Therapist's Date of Therapist Appointment: 07/30/2023 Time of Therapist Appointment: 7pm Therapy Appointment Comment: telehealth Professor Of Sport Management Name of Professor Of Sport Management: [employer] [facility] [employer] Phone Number for Professor Of Sport Management: [phone] Case Management Appointment Comment: Zoom link will be sent to [employer] email Post Discharge Appointments Primary Care Physician Name Of Family Doctor/PCP: [facility] Primary Care Provider Appointment Comment: [address] [place] [address] (2) Overdose on Tylenol Injury intent: intentional self-harm (3) Depression, unspecified Depression Type: unspecified Qualified Code(s): F32.A - Depression, unspecified
[2023-07-27] MEDS ORDERED: ERGOCALCIFEROL 50,000 UNITS 1250 MCG CAP PO SCH (15:30)
[2023-07-28] MEDS: buPROPion XL 150 MG TABCR PO SCH (08:25)
--- NOTE | 2023-07-28 11:09 | Discharge Summary ---
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 She talked to her mom yesterday to tell her that she failed the clinical and "that I'm going to need to decide what I'm going to do that's not nursing". Her parents don't currently know she is the hospital but she plans to tell her mom today. She notes that yesterday she first tried putting a plastic bag over her head and when then that didn't work she researched and found "caffeine at a certain amount could cause seizures and that Tylenol can be really bad for your liver and didn't know what other drugs were available". 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 She notes feeling good about being alive and is "nervous about what I'm going to study but also it will be nice to pick what I study" but also "not sure what this means for graduation". She describes feeling depressed in the last 4-5 weeks before failing her clinical exam including crying alot, some hopelessness and helplessness, low motivation, difficulty getting out of bed and sleep has been stable. Additional collateral per psych liason note from 07/25/2023: "23y F, 201, no hx inpt tx, 1 previous suicide attempt in 2020 by cutting, reports being depressed since coming to [employer]. 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 Received failing grades yesterday, impulsively went to the store, bought Tylenol and energy drinks to consume with the intent of suicide. Spoke with her mom on the phone, didn't disclose taking the OD, but felt better after talking with mom, so she drove herself to the ER. Willing to sign in voluntarily for tx, not on any medications, had a therapist in [place] but no longer sees her. Pt seemed guarded in her answers, and was not willing to sign BLADIMIR for parents. Denies anxiety, denies thoughts of SI until yesterday." Further collateral per ED CM note from 07/24/2023: "Pt presents after taking 8- 12 Tylenol and 5 Celsius energy drinks in an attempt to end her life. She denies HI/AH/VH/Paranoia. Denies current self-injury. Pt prefers she/her pronouns. Denies problems with anxiety. Pt does have a therapist but does not recall her name at this time. 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 Kiersten reports getting approximately 6 hours of sleep nightly and has had a reduced appetite without any noticeable weight loss. Pt denies disordered eating. She does report a previous suicide attempt in 2020 when she tried to cut herself but did not seek medical or inpatient mental health treatment. Pt is tearful but pleasant and cooperative. She is willing to sign herself in at this time." She is not currently prescribed any psychiatric medications. Psychiatric ROS notable for no current nor history of symptoms of magali, psychosis, PTSD, OCD, self-harm nor eating disorder. Physical Exam Psychiatric Orientation: alert, oriented to person, oriented to place, oriented to time and + guarded Apperance: appropriately dressed and appropriately groomed Eye Contact: good eye contact Motor Behavior: no abnormal motor movements Speech: normal rate/rhythm/volume of speech Affect: + depressed affect and + anxious affect Mood: + depressed mood and + anxious mood Thought Process: goal directed thought process Thought Content: reality based without delusions Suicidal Thoughts: denies suicidal thoughts (but s/p attempt), denies suicidal plan and denies suicidal intent Homicidal Thoughts: denies homicidal thoughts Hallucinations: no auditory hallucinations and no visual hallucinations Cognition: recent memory grossly intact, remote memory grossly intact, attention grossly intact and language grossly intact Estimated Intelligence: consistent with education level Insight: + fair insight Judgment: + fair judgement Vital Signs (Past 24 Hours) Last Vital Signs Temp 36.8 C 07/28/23 06:38 Pulse 90 07/28/23 06:38 Resp 16 07/28/23 06:38 BP 110/76 07/28/23 06:38 Pulse Ox 99 07/25/23 06:00 O2 Del Method Room Air 07/25/23 06:00 See admission H&P and DOD assessment. Principal Diagnosis Major Depressive Disorder, Single Episode, Severe, without Psychotic Features Psychiatric Data See daily stay summary. In short, safety was maintained and the patient was cooperative with care. Medication changes included starting bupropion XL 150 mg daily and they tolerated this well. A family session was held and safety plan was completed prior to discharge. Day of Discharge Assessment Today the patient voices readiness for discharge. They note improvement in mood and deny thoughts to harm self or others. Thoughts remain organized and they are improved from admission. There is no evidence of psychosis. They agree to take mediations as prescribed and keep follow-up appointments. They are stable for discharge to outpatient level of care. Overall I spent a total of 36 minutes for this discharge including review of chart records, review of test results, direct evaluation of the patient [id number], reconciling and ordering medication, medication education with the patient, risk assessment, discussion during interdisciplinary treatment rounds, and documentation in the electronic health record. Transition of Care Transition Of Care Record: was reviewed with the patient Advance Directives Advance Directives Information Provided: Yes Advance Directives: No Mental Health Advance Directive: No Advance Directives on File: No Living Will: No Power of Senior Test Analyst: No Advance Directives Reason:: Declines as Mental Health Visit. Suicide Risk Level Suicide Risk Level Comments: Suicide risk at discharge is deemed low as the patient is no longer requiring 24-hr monitoring, has a safety plan, and is free of suicidal ideation at discharge. Risk Factors Assessment Male: No : No Do You Have Access To A Gun?: No Health Problems: No Mental Health Diagnoses: Yes Substance Use Disorders: No Previous Attempt: Yes Family History of Suicide: No Previous Psychiatric Hospitalization: No Protective Factors Assessment Stable Relationships: Yes Supportive Family: Yes Total Time Total Time Spent: Greater Than 30 Minutes Total Time Includes: Examination of the patient, Discharge Planning, Medication Reconciliation and As well as (documentation) Discharge Data Lab Results 07/24/23 07/24/23 07/24/23 20:53 21:19 23:03 WBC 6.55 RBC 4.72 Hgb 14.7 Hct 41.8 MCV 88.6 MCH 31.1 MCHC 35.2 RDW Std Deviation 37.1 RDW Coeff of Curt 11.5 Plt Count 245 MPV 10.6 Immature Gran % (Auto) 0.3 Neut % (Auto) 63.6 Lymph % (Auto) 27.8 Sanders % (Auto) 5.3 Eos % (Auto) 2.7 Baso % (Auto) 0.3 Neut # (Auto) 4.16 Lymph # (Auto) 1.82 Sanders # (Auto) 0.35 Eos # (Auto) 0.18 Baso # (Auto) 0.02 Immature Gran # (Auto) 0.02 ESR PT 11.2 INR 1.0 VBG pH 7.41 VBG pCO2 32 L VBG pO2 31 VBG HCO3 20 VBG O2 Saturation < 60.0 VBG Base Excess -3.4 Sodium 136 Potassium 3.3 L Chloride 103 Carbon Dioxide 20 L Anion Gap 13 H BUN 10 Creatinine 0.86 Est Cr Clr Drug Dosing 87.9 Est GFR ( Amer) 110.4 Est GFR (Non-Af Amer) 95.2 BUN/Creatinine Ratio 11.6 Glucose 107 H Calcium 10.4 H Magnesium 1.7 Total Bilirubin 1.3 H AST 17 ALT 10 Alkaline Phosphatase 57 Total Protein 8.3 Albumin 4.6 Globulin 3.7 Albumin/Globulin Ratio 1.2 Vitamin B12 25-OH Vitamin D Total Folate HCG, Qual Negative Urine Color Yellow Urine Appearance Clear Urine pH 7.0 Ur Specific [place] 1.011 Urine Protein Negative Urine Glucose (UA) Trace H Urine Ketones Trace H Urine Blood Negative Urine Nitrite Negative Urine Bilirubin Negative Urine Urobilinogen Negative Ur Leukocyte Esterase Negative Urine Test Negative Salicylates < 3.0 L Urine Opiates Screen Neg Ur Methadone, Qual Neg Acetaminophen 39 H Urine Barbiturates Neg Ur Phencyclidine (PCP) Neg U Amphetamin/Meth Scrn Neg MDMA (Ecstasy) Screen Neg U Benzodiazepines Scrn Neg Ur Cocaine Metabolite Neg U Marijuana (THC) Screen Neg Ethyl Alcohol mg/dL < 10.0 SARS-CoV-2, RNA, NAAT 07/24/23 07/26/23 Unknown 18:31 WBC RBC Hgb Hct MCV MCH MCHC RDW Std Deviation RDW Coeff of Curt Plt Count MPV Immature Gran % (Auto) Neut % (Auto) Lymph % (Auto) Sanders % (Auto) Eos % (Auto) Baso % (Auto) Neut # (Auto) Lymph # (Auto) Sanders # (Auto) Eos # (Auto) Baso # (Auto) Immature Gran # (Auto) ESR 17 PT INR VBG pH VBG pCO2 VBG pO2 VBG HCO3 VBG O2 Saturation VBG Base Excess Sodium Potassium Chloride Carbon Dioxide Anion Gap BUN Creatinine Est Cr Clr Drug Dosing Est GFR ( Amer) Est GFR (Non-Af Amer) BUN/Creatinine Ratio Glucose Calcium Magnesium Total Bilirubin AST ALT Alkaline Phosphatase Total Protein Albumin Globulin Albumin/Globulin Ratio Vitamin B12 478 25-OH Vitamin D Total 24.8 L Folate 18.59 HCG, Qual Urine Color Urine Appearance Urine pH Ur Specific [place] Urine Protein Urine Glucose (UA) Urine Ketones Urine Blood Urine Nitrite Urine Bilirubin Urine Urobilinogen Ur Leukocyte Esterase Urine Test Salicylates Urine Opiates Screen Ur Methadone, Qual Acetaminophen Urine Barbiturates Ur Phencyclidine (PCP) U Amphetamin/Meth Scrn MDMA (Ecstasy) Screen U Benzodiazepines Scrn Ur Cocaine Metabolite U Marijuana (THC) Screen Ethyl Alcohol mg/dL SARS-CoV-2, RNA, NAAT NEGATIVE Hospital Course (1) Suicide attempt by drug ingestion: (2) Overdose on Tylenol: (3) Depression, unspecified: (4) Vitamin D deficiency: Plan 07/27/2023: * continue bupropion XL 150 mg QAM - started 07/25/2023 * start ergocalciferol 50,000 IU twice weekly * anticipate discharge tomorrow 07/26/2023: * continue bupropion XL 150 mg QAM - started 07/25/2023 * additional lab: b12, folic acid, vitamin D levels, ESR 07/25/2023: The patient was admitted to the [facility]) on q15 min checks (behavioral with suicide precautions) for safety. The patient will participate in group, recreational, and milieu therapies and will be offered additional individual and family sessions as clinically appropriate. -Wellbutrin XL 150mg qAM tomorrow Mental Health & Subst Abuse Tx Psychiatrist Name of Psychiatrist: N/A Date Of Appointment With Psychiatric Provider: NA Therapist Name of Therapist: Dr. Leticia Moses Therapist's Date of Therapist Appointment: 07/30/2023 Time of Therapist Appointment: 7pm Therapy Appointment Comment: telehealth Therapist Release of Information: Obtained, Reviewed and Signed Clasp Machine Operator Name of Clasp Machine Operator: [facility] Phone Number for Clasp Machine Operator: [phone] Date of Appointment with Clasp Machine Operator: 07/29/23 Time of Appointment with Clasp Machine Operator: 1pm Case Management Appointment Comment: Zoom link will be sent to [employer] email Post Discharge Appointments Primary Care Physician Name Of Family Doctor/PCP: [facility] Date of Future Appointment with PCP: 08/06/2023 Time of Appointment with PCP: 4:30pm Provider Appointment Comment: Virtual link will be sent to email Primary Care Release of Information: Obtained, Reviewed and Signed Contact Information Discharge Discharge Address: [address] [place] [address], [facility] [address], [place] [address] Discharge Plan Discharge Items Patient Disposition: Home - Self-Care Reason For Visit: SI ATTEMPT Discharge Diagnosis: Major Depressive Disorder, Single Episode, Severe, without Psychotic Features Activity: Resume your previous activity Non-emergency contact: Primary Care Provider and Psychiatrist Call non-emergency contact if: you have any medication questions and your symptoms worsen Follow-up/Referrals: [facility] [Primary Care Provider] - Diet: Regular Addtl Attending Provider Instructions: SPECIAL CARE INSTRUCTIONS: 1. Follow through with your scheduled aftercare appointments. If unable to keep an appointment, please call to reschedule. 2. Take your medication only as prescribed. Medication should not be changed or stopped without the approval of your doctor. In the event of worsening symptoms or concerns about side effects, contact your doctor immediately. 3. Utilize new healthy coping skills, anger management skills, and stress management skills learned during your hospitalization. Journal feelings and process them with a support person. Identify stressors or situations that may result in relapse, deterioration or inappropriate behaviors and develop a plan to deal with those issues. 4. If your coping skills are ineffective and you are in crisis, contact your outpatient providers for direction. If unable to reach your providers, please call the [facility] CRISIS LINE AT , go to the [facility] walk-in center at [address], [place], or go to the closest Emergency Room. 5. Avoid alcohol and un-prescribed drugs. 6. You have been provided with the Mental Health Advance Directives Pamphlet for your review. 7. Your condition is stable for discharge to outpatient level of care, but recovery is an ongoing process. Ifthoughts to harm yourself or others return, follow the safety plan developed during your stay. Planning for a safe return home includes securing weapons. Our treatment team recommends weaponsbe removed from the home until your outpatient provider reassesses your progress. In rare cases where the items themselvescannot be removed, guns and ammunitionshould be secured separatelyand keys stored by a reliable personoutside of the home. If you were admitted on an involuntary commitment, the police or other legal authorities may be involved in this process. AFTERCARE APPOINTMENTS: * Please call your insurance company prior to your scheduled appointment to confirm your aftercare providers are covered. Take your insurance information to your appointments. WHO TO CALL AND WHEN: Medical Emergencies: For questions or emergencies related to your hospital stay, please contact the Inpatient Behavioral Health Unit at [phone]. A dust mill operator is on-call 31/03 for the Behavioral Health Unit for emergencies At any time you feel your situation is an emergency, you may also call 911 immediately. VITAMIN D For your moderate Vitamin D deficiency, continue prescription Vitamin D2 (ergocalciferol) 50,000 IU one capsule by mouth once a week for 4 weeks. When the prescription Vitamin D2 is finished, start [id number] Vitamin D3 (cholecalciferol) 2,000 IU one capsule by mouth every day. After a month of daily Vitamin D3 2,000 IU you should have your Vitamin D level re-checked. Pending Studies at Discharge: No Stand-Alone Forms: [facility]ess[facility] Medications and DC Order Prescriptions: New ergocalciferol (vitamin D2) 1,250 mcg (50,000 unit) Capsule 50,000 unit PO BLANK 30 Days Qty: 4 0RF Rx Instructions: take one capsule by mouth once a week bupropion HCl 150 mg Tablet Extended Release 24 Hr 150 mg PO QAM 30 Days Qty: 30 0RF Discharge Orders: Discharge Order (Routine); Ordered 07/28/23 Ordered By: Jason Roth Admission Data Admit Date/Time: 07/25/23 00:41 Attending Provider: Raven Williamson Admit Provider: Raven Williamson Primary Care Provider: [facility] Other Interventions: Discharge Summary Assessment (RN) Last Done: 07/28/23 11:19 Coding Level of Care Code 99233 D/C day mgmt > 30 min Diagnoses Suicide attempt by drug ingestion T50.902A Overdose on Tylenol T39.1X1A Injury intent: intentional self-harm Depression, unspecified depression type F32.A Depression Type: unspecified Vitamin D deficiency E55.9 Time Spent (min) 36
== END 2023-07-28 13:10 | disposition home or self-care (01) | DRG 918 ==
LOC: ED 20:28 → 3S 07-25 00:41
DX: E87.6 Hypokalemia; Z88.0 Allergy status to penicillin; E55.9 Vitamin D deficiency, unspecified; F32.A Depression, unspecified; T39.1X2A Poisoning by 4-Aminophenol derivatives, intentional self-harm, initial encounter; Z88.1 Allergy status to other antibiotic agents